=== PATIENT | female | born 1990 | race Caucasian/White ===

== ENCOUNTER 2019-08-23 16:10 | Outpatient (CLI) | payer BC, SELFPAY | END 2019-08-23 16:11 | disposition home or self-care (01) | LOC: CHSLAB 16:18 | PROVIDERS: PCP Family Medicine; Visit Provider Family Medicine | DX: N91.2 Amenorrhea, unspecified (principal) | CPT/HCPCS: 36415; 84702 ==

== ENCOUNTER 2019-08-25 13:09 | Outpatient (CLI) | payer BC, SELFPAY | END 2019-08-25 13:10 | disposition home or self-care (01) | LOC: CHSLAB 13:12 | PROVIDERS: PCP Family Medicine; Visit Provider Family Medicine | DX: N91.2 Amenorrhea, unspecified (principal) | CPT/HCPCS: 36415; 84702 ==

== ENCOUNTER 2020-12-31 07:45 | Emergency (ER) | payer BC, SELFPAY ==
[2020-12-31 07:48] VITALS: BP 137/92; PULSE 90; RESP 16; TEMP 36.2; O2SAT 96
--- NOTE | 2020-12-31 08:06 | ED.EYEPROB ---
HPI - Eye Problem General Chief complaint: Eye Problems Stated complaint: poked in eye Source: patient and family Mode of arrival: ambulatory History of Present Illness HPI Narrative: this is a 22-year-old female that presents after she was inadvertently and accidentally poked in the left eye by her baby causing pain tearing this occurred last night has some normal visual acuity, does have pain. chief complaint: eye pain, eye redness and eye injury Related Data Home Medications Medication Instructions Recorded Confirmed fluoxetine 40 mg PO DAILY 12/31/20 12/31/20 Allergies Allergy/AdvReac Type Severity Reaction Status Date / Time No Known Allergies Allergy Verified 12/31/20 07:59 Review of Systems Review of Systems: All systems reviewed & are unremarkable except as noted in HPI and below PMFSH Past Medical History Medical History Nystagmus of left eye Social History Social History Smoking status: Never smoker Exam Const: General: no acute distress and alert Orientation/consciousness: patient oriented x3 HENMT: Other: redness tearing and pain in the left eye Eyes: Other: as above, redness tearing pain left eye Neck: Neck: normal visual inspection and no lymphadenopathy Resp: Effort & Inspection: normal respiratory effort Auscultation: clear to auscultation bilaterally Cardio: Rate: regular rate Rhythm: regular rhythm Skin: General skin exam: normal color Rashes: no rashes Neuro: General: patient oriented x3, moves all extremities and no meningeal signs Psych: Mental Status: mental status grossly normal Affect: normal affect Course Course Emergency Course: patient had tetracaine numbing medication to the left eye patient states that her discomfort has improved and stain performed in [place] seen which shows a corneal abrasion at around the 6 o'clock position of her left cornea. Vital Signs Vital signs: Vital Signs Temperature 36.2 C L 12/31/20 07:48 Pulse Rate 90 12/31/20 07:48 Respiratory Rate 16 12/31/20 07:48 Blood Pressure 137/92 H 12/31/20 07:48 Pulse Oximetry 96 12/31/20 07:48 Temperature 36.2 C L 12/31/20 07:48 Pulse Rate 90 12/31/20 07:48 Respiratory Rate 16 12/31/20 07:48 Blood Pressure 137/92 H 12/31/20 07:48 Pulse Oximetry 96 12/31/20 07:48 Procedures FB Removal Eye Foreign Body #1: Foreign Body Removal Date: 12/31/20 Foreign Body Removal Time: 08:10 Time Out performed: Yes Location: eye (L) Topical anesthetic used: tetracaine Evidence of corneal penetration: No Technique: irrigation Procedure performed under: direct visualization with magnification Critical Care Time Critical Care Time Critical Care Time: No Discharge Plan Discharge Clinical Impression: Corneal abrasion Qualifiers: Encounter type: initial encounter Laterality: left Qualified Code(s): S05.02XA - Injury of conjunctiva and corneal abrasion without foreign body, left eye, initial encounter Patient Disposition: Home, Self-Care Condition: Stable Instructions: Antibiotic Form, Corneal Abrasion (ED) Additional Instructions: Take medicine as prescribed, can use Tylenol extra-strength as needed for pain along with antibiotic eyedrops and follow up with stem frazer within a week for further evaluation and treatment. Prescriptions: New ciprofloxacin HCl 0.3 % drops See Rx Instructions .ROUTE .COMPLEX 7 Days Qty: 5 RF: 0 No Action fluoxetine 40 mg capsule 40 mg PO DAILY RF: 0 Follow-up/Referrals: Katt Carreno MD [Primary Care Provider] - Time of Disposition: 08:13
[2020-12-31 08:14] VITALS: RESP 16; O2SAT 96
== END 2020-12-31 08:18 | disposition home or self-care (01) ==
PROVIDERS: Emergency Provider Emergency Medicine; PCP Family Medicine
DX: S05.02XA Injury of conjunctiva and corneal abrasion without foreign body, left eye, initial encounter (principal); X58.XXXA Exposure to other specified factors, initial encounter
CPT/HCPCS: 99283; A9270

== ENCOUNTER 2022-10-15 18:15 | Emergency (ER) | payer BC, SELFPAY ==
--- NOTE | ~2022-10-15 | XR_ITS ---
EXAM: XR ankle RT min 3V DATE: 10/15/2022 18:39 HISTORY: LATERAL Ankle pain SINCE INJURY 18 DAYS AGO . COMPARISON: None available. FINDINGS: Normal mineralization. No fracture or dislocation. No lytic or blastic lesion. Joint space s are maintained. No erosion or periosteal change. Mild lateral soft tissue swelling. Moderate volume ankle joint fluid. IMPRESSION: No acute or significant chronic osseous finding in the right ankle. Moderate ankle joint effusion. Mild soft tissue swelling over the lateral malleolus. Reviewed, dictated and finalized at location [facility]. IMPRESSION: No acute or significant chronic osseous finding in the right ankle. Moderate ankle joint effusion. Mild soft tissue swelling over the lateral mall eolus.
[2022-10-15 18:18] VITALS: BP 119/76; PULSE 82; RESP 19; TEMP 37.4; O2SAT 100
--- NOTE | 2022-10-15 18:25 | ED.LOWEXIN ---
HPI - Extremity Injury (Lower) General Chief Complaint: Extremity Injury, Lower Stated Complaint: R ankle injury Time Seen by Provider: 10/15/22 18:18 Source: patient Mode of arrival: ambulatory Limitations: no limitations History of Present Illness HPI Narrative: this is a 32-year-old female with some an injury to her right ankle that occurred about 2 and half weeks ago and has continued pain and discomfort currently there is no swelling has good range of motion she rates her pain about a 3/10 with some good pedal pulse no numbness or tingling. complaint: ankle injury Onset (ago): week(s) Injury: Right: ankle ( tender lateral malleolus) Type of Injury: inversion Place: street/outdoors Severity: mild Severity scale (1-10): 3 Relieving factors: NSAID Exacerbating factors: weight bearing Related Data Home Medications Medication Instructions Recorded Confirmed fluoxetine 40 mg capsule 40 mg PO DAILY 12/31/20 10/15/22 Allergies Allergy/AdvReac Type Severity Reaction Status Date / Time No Known Allergies Allergy Verified 10/15/22 18:23 Review of Systems Review of Systems: All systems reviewed & are unremarkable except as noted in HPI and below PMFSH Past Medical History Medical History Nystagmus of left eye Social History Social History Smoking status: Never smoker Exam Const: General: healthy appearing Nutritional Appearance: well nourished Limitations: no limitations Resp: Effort & Inspection: normal respiratory effort Auscultation: clear to auscultation bilaterally Cardio: Rate: regular rate Rhythm: regular rhythm Skin: General skin exam: normal color Rashes: no rashes Wounds: no wounds Neuro: General: patient oriented x3 Gait exam (Neuro): Normal gait present Extrem: Other: Tender right lateral malleolus with movement and palpation Psych: Mental Status: mental status grossly normal Course Course Emergency Course: patient declined any pain medication at this time, x-ray performed reveals no acute fractures saida wrap placed. Vital Signs Vital signs: Vital Signs Temperature 37.4 C 10/15/22 18:18 Pulse Rate 82 10/15/22 18:18 Respiratory Rate 19 10/15/22 18:18 Blood Pressure 119/76 10/15/22 18:18 Pulse Oximetry 100 10/15/22 18:18 Oxygen Delivery Room Air 10/15/22 18:18 Temperature 37.4 C 10/15/22 18:18 Pulse Rate 82 10/15/22 18:18 Respiratory Rate 19 10/15/22 18:18 Blood Pressure 119/76 10/15/22 18:18 Pulse Oximetry 100 10/15/22 18:18 Oxygen Delivery Room Air 10/15/22 18:18 Critical Care Time Critical Care Time Critical Care Time: No Discharge Plan Discharge Clinical Impression: Ankle sprain and strain Patient Disposition: Home, Self-Care Condition: Stable Instructions: Antibiotic Form, Ankle Sprain (ED) Additional Instructions: advised to keep elevated at night while at rest can take Tylenol or Motrin for pain and inflammation and if symptoms persist or worsen should contact primary for further evaluation. Prescriptions: No Action fluoxetine 40 mg capsule 40 mg PO DAILY Follow-up/Referrals: UNKNOWN,DOCTOR [Non-Staff] - Time of Disposition: 19:02
== END 2022-10-15 19:12 | disposition home or self-care (01) ==
PROVIDERS: Emergency Provider Emergency Medicine; PCP Family Medicine
DX: S93.401A Sprain of unspecified ligament of right ankle, initial encounter (principal); S96.911A Strain of unspecified muscle and tendon at ankle and foot level, right foot, initial encounter; X50.9XXA Other and unspecified overexertion or strenuous movements or postures, initial encounter
CPT/HCPCS: 73610; 99283

== ENCOUNTER 2023-01-02 06:45 | Emergency (ER) | payer BC, SELFPAY ==
[2023-01-02 06:48] VITALS: BP 123/83; PULSE 87; RESP 16; TEMP 36.7; O2SAT 99
[2023-01-02] MEDS: TETRACAINE HCL 0.5% OPHTH SOLN 4 ML BTL 1 DROP EACH EYE (07:11)
[2023-01-02] MEDS: FLUORESCEIN SOD 1 MG/STRIP EACH EYE (07:11)
--- NOTE | 2023-01-02 07:34 | ED.GENADULT ---
HPI - General Adult General Chief complaint: Eye Problems Stated complaint: left eye injury Time Seen by Provider: 01/02/23 07:01 Source: patient History of Present Illness HPI narrative: 32-year-old female presenting with left eye irritation. Patient states approximately 2 days ago she was struck in the face by her dog's tail. She states since that time her left eye has felt irritated and She has been experiencing clear drainage from the eye. She denies any other injury or change in vision. Onset (ago): day(s) Location: eyes Related Data Home Medications Medication Instructions Recorded Confirmed fluoxetine 40 mg capsule 40 mg PO DAILY 12/31/20 01/02/23 Allergies Allergy/AdvReac Type Severity Reaction Status Date / Time No Known Allergies Allergy Verified 10/15/22 18:23 [facility] Past Medical History Medical History Nystagmus of left eye Social History Social History Smoking status: Never smoker Exam Narrative: The globes were examined using fluorescein stain and tetracaine. There does appear to be a small abrasion to the medial aspect of the left cornea. No evidence of ulceration or rupture. No dendritic lesions. Pressure in the eye is 14. No proptosis. No tenderness to palpation. Extraocular muscles intact. Visual acuity intact. All other systems unremarkable. Course Vital Signs Vital signs: Vital Signs Temperature 36.7 C 01/02/23 06:48 Pulse Rate 87 01/02/23 06:48 Respiratory Rate 16 01/02/23 06:48 Blood Pressure 123/83 01/02/23 06:48 Pulse Oximetry 99 01/02/23 06:48 Oxygen Delivery Room Air 01/02/23 06:48 Temperature 36.7 C 01/02/23 06:48 Pulse Rate 87 01/02/23 06:48 Respiratory Rate 16 01/02/23 06:48 Blood Pressure 123/83 01/02/23 06:48 Pulse Oximetry 99 01/02/23 06:48 Oxygen Delivery Room Air 01/02/23 06:48 Medical Decision Making MDM Narrative Medical decision making narrative: physical exam findings consistent with corneal abrasion. No red flag symptom allergy. Will prescribe erythromycin ointment. Patient does have good follow with her eye doctor. Will have her follow-up with her eye doctor today. She appears well. She is nontoxic appearing. She was given strict return precautions and follow-up instructions. She feels safe to proceed outpatient management. Vital Signs Vital Signs: Vital Signs Temperature 36.7 C 01/02/23 06:48 Pulse Rate 87 01/02/23 06:48 Respiratory Rate 16 01/02/23 06:48 Blood Pressure 123/83 01/02/23 06:48 Pulse Oximetry 99 01/02/23 06:48 Oxygen Delivery Room Air 01/02/23 06:48 Temperature 36.7 C 01/02/23 06:48 Pulse Rate 87 01/02/23 06:48 Respiratory Rate 16 01/02/23 06:48 Blood Pressure 123/83 01/02/23 06:48 Pulse Oximetry 99 01/02/23 06:48 Oxygen Delivery Room Air 01/02/23 06:48 Discharge Plan Discharge Clinical Impression: Corneal abrasion Patient Disposition: Home, Self-Care Condition: Stable Instructions: Antibiotic Form, Corneal Abrasion (ED) Additional Instructions: As discussed, please follow-up with your up stockkeeper. Please return to emergency department with any concerns. Prescriptions: New erythromycin 5 mg/gram (0.5 %) ointment 1 applic EACH EYE TID 5 Days Qty: 3.5 0RF No Action fluoxetine 40 mg capsule 40 mg PO DAILY Follow-up/Referrals: Katt Carreno MD [Primary Care Provider] - Time of Disposition: 07:52
[2023-01-02] MEDS: ERYTHROMYCIN OPHTH OINTMENT 3.5 GM TUBE 1 APPLIC EACH EYE (07:46)
[2023-01-02 08:04] VITALS: BP 123/83; PULSE 87; RESP 16; TEMP 36.7; O2SAT 99
== END 2023-01-02 08:04 | disposition home or self-care (01) ==
PROVIDERS: Emergency Provider Emergency Medicine; PCP Family Medicine
DX: S05.02XA Injury of conjunctiva and corneal abrasion without foreign body, left eye, initial encounter (principal); Z79.899 Other long term (current) drug therapy; W54.1XXA Struck by dog, initial encounter
CPT/HCPCS: 99283; A9270